=== PATIENT | female | born 1980 | race Caucasian/White ===

== ENCOUNTER → 2016-05-18 | Outpatient (CLI) | payer BC ==
--- NOTE | 2016-05-18 19:36 | MR ---
EXAMINATION TYPE: MR brain wo con DATE OF EXAM: 05/18/2016 6:35 PM COMPARISON: NONE HISTORY: Headache T1-weighted sagittal, T2, FLAIR, and diffusion axial, and T2 coronal coronal views of the brain are s ubmitted. There is no evidence of acute ischemia. The ventricles, basal cisterns, and sulci overlying the conv exities are consistent with the patient's age. There is no mass effect. Craniocervical junction maintained. No evidence of cerebellopontine angle mass. There is evidence of severe ethmoidal sinusitis and mild frontal and maxillary sinusitis. Mild spheno idal sinusitis noted. White matter: No abnormal signal identified within the visualized white matter IMPRESSION: 1. No acute intracranial process. 2. Moderate sinusitis.
== END | disposition home or self-care (01) ==
LOC: RADMRIMAIN 18:04
PROVIDERS: ATTEND Psychiatry & Neurology Neurology
DX: R51 Headache (principal)
CPT/HCPCS: 70551

== ENCOUNTER → 2017-01-05 | Outpatient (CLI) | payer BC | END | disposition home or self-care (01) | LOC: LABWHC1 10:20 | PROVIDERS: ATTEND Otolaryngology | DX: J30.89 Other allergic rhinitis (principal) | CPT/HCPCS: 36415; 86001 ==

== ENCOUNTER → 2017-05-02 | Outpatient (CLI) | payer BC ==
--- NOTE | 2017-05-02 13:04 | XR ---
EXAMINATION TYPE: XR abdomen 1V DATE OF EXAM: 05/02/2017 12:03 PM CLINICAL HISTORY: History of kidney stones with bilateral flank pain. TECHNIQUE: Single supine KUB image of the abdomen is obtained. COMPARISON: Most recent abdominal x-ray April 26, 2014. FINDINGS: There are suspected 10-15 calculi scattered throughout the left kidney increased in number from prior study measuring up to 7 mm on long axis. There are 6-10 smaller calculi scattered througho ut the right kidney on current study measuring up to 4 mm on long axis. There is overall nonobstructive bowel gas pattern. Tubular gas collection above the pubic symphysis l ikely reflects air within vaginal from tampon use. Visualized osseous structures are intact. IMPRESSION: Bilateral left greater than right nephrolithiasis.
== END | disposition home or self-care (01) ==
LOC: RADXRMAIN 11:40
PROVIDERS: ATTEND Urology
DX: N20.0 Calculus of kidney (principal)
CPT/HCPCS: 74018

== ENCOUNTER → 2018-10-09 | Outpatient (CLI) | payer BC ==
--- NOTE | 2018-10-09 12:15 | XR ---
EXAMINATION TYPE: XR KUB DATE OF EXAM: 10/09/2018 CLINICAL DATA: 38 year-old female history of chronic kidney disease, follow-up kidney stones, [facility] COMPARISON: 04/26/2014 FINDINGS: Nonobstructive bowel gas pattern. Scattered mild stool burden. Possible 4 mm density right mid abdomen. Additional 4 mm density upper to mid left abdomen. IMPRESSION: Suspect a 4 mm nonobstructive calculus, one in each kidney.
== END | disposition home or self-care (01) ==
LOC: RADXRMAIN 10:42
PROVIDERS: ATTEND Urology
DX: N20.0 Calculus of kidney (principal)
CPT/HCPCS: 74018

== ENCOUNTER → 2019-03-11 | Outpatient (CLI) | payer BC ==
[2019-03-11 09:26] LABS: HCT 39.8 % (34.0-46.0); HGB 13.5 gm/dL (11.4-16.0); MCH 32.7 pg (25.0-35.0); MCHC 33.9 g/dL (31.0-37.0); MCV 96.7 fL (80.0-100.0); Mean Platelet Volume 6.2; Platelet Count 258 k/uL (150-450); RBC 4.11 m/uL (3.80-5.40); RDW 11.2 % (11.5-15.5); Reticulocyte % 1.4 % (0.5-2.0); WBC 5.6 k/uL (3.8-10.6)
[2019-03-11 16:01] LABS: % Iron Saturation 20.42 (12.00-45.00)
[2019-03-11 16:08] LABS: T4, Free (Free Thyroxine) 1.1 ng/dL (0.80-1.80)
[2019-03-11 16:11] LABS: Ferritin 91.3 ng/mL (10.0-291.0)
[2019-03-11 16:16] LABS: Folate, Serum 17.2 ng/mL
[2019-03-13 06:44] LABS: Vit B1(Thiamine) 69 ug/L (38-122)
== END | disposition home or self-care (01) ==
LOC: LABWHC1 08:27
PROVIDERS: ATTEND Psychiatry & Neurology Pain Medicine
DX: D64.9 Anemia, unspecified (principal)
CPT/HCPCS: 36415; 82607; 82668; 82728; 82746; 83540; 83550; 84207; 84425; 84439; 84443; 84481; 84591; 85027; 85045

== ENCOUNTER → 2023-07-31 | Outpatient (CLI) | payer BC ==
[2023-07-31 16:15] LABS: Basophils # (A) 0.04 X 10*3/uL (0.00-0.10); Basophils % (A) 0.7 %; Eosinophils # (A) 0.07 X 10*3/uL (0.04-0.35); Eosinophils % (A) 1.3 %; HCT 39.3 % (37.2-46.3); HGB 13.2 g/dL (12.0-15.0); Lymphocytes # (A) 2.16 X 10*3/uL (0.90-5.00); MCH 32.5 pg (27.0-32.0); MCHC 33.6 g/dL (32.0-37.0); MCV 96.8 FL (80.0-97.0); Monocytes % (A) 7.2 %; NRBC Per 100 WBC 0 X 10*3/uL (0.00-0.01); Neutrophils # (A) 2.86 X 10*3/uL (1.80-7.70); Neutrophils % (A) 51.6 %; Platelet Count 237 X 10*3/uL (140-440); RBC 4.06 X 10*6/uL (4.10-5.20); RDW 11.4 % (11.5-14.5); WBC 5.54 X 10*3/uL (4.50-10.00)
[2023-07-31 16:36] LABS: ALT 13 U/L (8-44); AST 19 U/L (13-35); Albumin 4.6 g/dL (3.8-4.9); Albumin/Globulin Ratio 1.92 Ratio (1.60-3.17); Alkaline Phosphatase 61 U/L (41-126); BUN/Creat Ratio 16.88 Ratio (12.00-20.00); Blood Urea Nitrogen 13.5 mg/dL (9.0-27.0); Calcium 9.8 mg/dL (8.7-10.3); Carbon Dioxide 25.3 mmol/L (21.6-31.8); Chloride 101 mmol/L (96-109); Chol/HDL Ratio 4.01 Ratio; Globulin 2.4 g/dL (1.6-3.3); Glucose 89 mg/dL (70-110); LDL Cholesterol,Calculated 188.5 mg/dL (0.0-131.0); Potassium 4.5 mmol/L (3.5-5.5); Sodium 138 mmol/L (135-145); Total Bilirubin 0.3 mg/dL (0.3-1.2)
== END | disposition home or self-care (01) ==
LOC: LABWHC1 08:53
PROVIDERS: ATTEND Family Medicine
DX: Z00.00 Encounter for general adult medical examination without abnormal findings (principal)
CPT/HCPCS: 36415; 80053; 80061; 84443; 85025

== ENCOUNTER 2024-02-08 05:59 | Emergency (ER) | payer BC ==
--- NOTE | 2024-02-08 06:18 | ED ---
Abdominal Pain HPI - General Chief Complaint: Abdominal Pain Stated Complaint: Abd Pain Time Seen by Provider: 02/08/24 06:13 Source: patient, RN notes reviewed Mode of arrival: ambulatory Limitations: no limitations - History of Present Illness Initial Comments: This is a 44-year-old female history of asthma and migraines who presents emergency department with right flank pain radiation into her abdomen that started approximately 4 AM this morning. Patient states that she has also been feeling nauseous, chilled and has had episodes of diarrhea. She does have a history of kidney stones and states that this pain does feel similar in the past. She has a history of stent placement and subsequent from kidney stones. States that she has been going to the bathroom more frequently. Denies hematuria and dysuria. - Related Data Home Medications Medication Instructions Recorded Confirmed Albuterol Inhaler [Ventolin 1 - 2 puff INHALATION Q6HR PRN 03/23/14 03/25/14 Inhaler] Apri 28( Control) 1 tab PO 03/23/14 03/25/14 Mometasone Furoate [Asmanex] 1 - 2 puff INHALATION HS 03/23/14 03/25/14 Montelukast [Singulair] 10 mg PO DAILY 03/23/14 03/25/14 SUMAtriptan succinate [Imitrex] 50 mg PO DIRECTED PRN 03/23/14 03/25/14 Previous Rx's Medication Instructions Recorded Ketorolac [Toradol] 10 mg PO Q8HR #15 tab 02/08/24 Ondansetron Odt [Zofran Odt] 4 mg PO Q8HR PRN #10 tab 02/08/24 Tamsulosin [Flomax] 0.4 mg PO DAILY #7 cap 02/08/24 Allergies Allergy/AdvReac Type Severity Reaction Status Date / Time No Known Allergies Allergy Verified 02/08/24 06:06 Review of Systems ROS Statement: Those systems with pertinent positive or pertinent negative responses have been documented in the HPI. ROS Other: All systems not noted in ROS Statement are negative. Past Medical History Past Medical History: Asthma, GERD/Reflux History of Any Multi-Drug Resistant Organisms: None Reported Additional Past Surgical History / Comment(s): LITHOTRIPSY X3 ,NECK C YST,EXCISION OF LESION Past Anesthesia/Blood Transfusion Reactions: No Reported Reaction Past Alcohol Use History: Rare Past Drug Use History: None Reported General Exam Limitations: no limitations General appearance: alert, in no apparent distress Eye exam: Present: normal appearance, PERRL, EOMI. Absent: scleral icterus, conjunctival injection, periorbital swelling ENT exam: Present: normal exam, mucous membranes moist Neck exam: Present: normal inspection. Absent: tenderness, meningismus, lymphadenopathy Respiratory exam: Present: normal lung sounds bilaterally. Absent: respiratory distress, wheezes, rales, rhonchi, stridor Cardiovascular Exam: Present: regular rate, normal rhythm, normal heart sounds. Absent: systolic murmur, diastolic murmur, rubs, gallop, clicks GI/Abdominal exam: Present: soft, tenderness (right lower abdomen), normal bowel sounds. Absent: distended, guarding, rebound, rigid Extremities exam: Present: normal inspection, full ROM, normal capillary refill. Absent: tenderness, pedal edema, joint swelling, calf tenderness Back exam: Present: normal inspection, CVA tenderness (R) Neurological exam: Present: alert, oriented X3, CN II-XII intact Course Vital Signs 02/08/24 06:00 Pulse Rate 84 Respiratory 18 Rate Blood Pressure 134/75 O2 Sat by Pulse 100 Oximetry Medical Decision Making - Medical Decision Making Was pt. sent in by a medical professional or institution (, PA, WET PROCESS MILLER HEAD ASSISTANT, urgent care, hospital, or chcf...) When possible be specific @ -No Did you speak to anyone other than the patient for history (EMS, parent, family, police, friend...)? What history was obtained from this source @ -No Did you review nursing and triage notes (agree or disagree)? Why? @ -I reviewed and agree with nursing and triage notes Were old charts reviewed (outside hosp., previous admission, EMS record, old EKG, old radiological studies, urgent care reports/EKG's, chcf records)? Report findings @ -No old charts were reviewed Differential Diagnosis (chest pain, altered mental status, abdominal pain women, abdominal pain men, vaginal bleeding, weakness, fever, dyspnea, syncope, headache, dizziness, GI bleed, back pain, seizure, CVA, palpatations, mental health, musculoskeletal)? @ -Differential Abdominal Pain Women: Appendicitis, Cholecystitis, diverticulosis, ischemic bowel, pancreatitis, hepatitis, UTI, gastroenteritis, AAA, incarcerated hernia, bowel obstruction, constipation, inflammatory bowel, hepatitis, peptic ulcer disease, splenic infarction, perforated viscus, vulvitis, ovarian torsion, PID, kidney stone, placenta abruption, this is not meant to be an all-inclusive list EKG interpreted by me (3pts min.). @ -none X-rays interpreted by me (1pt min.). @ -None done CT interpreted by me (1pt min.). @ -CT of the abdomen and pelvis without contrast remarkable for a moderate to marked right hydronephrosis and hydroureter secondary to a 6 to 7 mm distal right ureteral calculus U/S interpreted by me (1pt. min.). @ -None done What testing was considered but not performed or refused? (CT, X-rays, U/S, labs)? Why? @ -None What meds were considered but not given or refused? Why? @ -None Did you discuss the management of the patient with other professionals (professionals i.e. , PA, WET PROCESS MILLER HEAD ASSISTANT, lab, RT, psych nurse, social problems specialist, flight line service attendant, teacher, strike warfare/missile systems officer, pillowcase folder)? Give summary @ -No Was smoking cessation discussed for >3mins.? @ -No Was critical care preformed (if so, how long)? @ -No Were there social determinants of health that impacted care today? How? (Homelessness, low income, unemployed, alcoholism, drug addiction, transportation, low edu. Level, literacy, decrease access to med. care, fpc, rehab)? @ -No Was there de-escalation of care discussed even if they declined (Discuss DNR or withdrawal of care, Hospice)? DNR status @ -No What co-morbidities impacted this encounter? (DM, HTN, Smoking, COPD, CAD, Cancer, CVA, ARF, Chemo, Hep., AIDS, mental health diagnosis, sleep apnea, morbid obesity)? @ -None Was patient admitted / discharged? Hospital course, mention meds given and route, prescriptions, significant lab abnormalities, going to OR and other pertinent info. @ -discharged. 44-year-old female with right flank pain. On my evaluation the patient is noted to be mildly pale however no signs of acute distress. Vitals are stable. Physical examination remarkable for right CVA tenderness in addition to wrapping tenderness into the right mid abdomen. Patient will be provided with analgesics and antiemetics pending laboratory results and CT imaging. She is in agreement with this plan. CBC reveals mild leukocytosis of 11.8, left shift neutrophils of 9, CMP unremarkable, urinalysis remarkable for blood and 10 white blood cells. On reevaluation, states that the medication has significantly helped her symptoms. CT remarkable for a 6 to 7 mm distal right ureteral calculus. Patient's urine will be sent for culture and she will be discharged home in stable condition with Flomax, Toradol, and Zofran. She is instructed to follow-up with her urologist outpatient within the next week for further evaluation. All questions answered at bedside and strict return parame ters discussed with the patient she is verbalized understanding. Case discussed with Dr. Whiteside Undiagnosed new problem with uncertain prognosis? @ -No Drug Therapy requiring intensive monitoring for toxicity (Heparin, Nitro, Insulin, Cardizem)? @ -No Were any procedures done? @ -No Diagnosis/symptom? @ -urethral stone, flank pain Acute, or Chronic, or Acute on Chronic? @ -acute Uncomplicated (without systemic symptoms) or Complicated (systemic symptoms)? @ -uncomplicated Side effects of treatment? @ -No Exacerbation, Progression, or Severe Exacerbation? @ -No Poses a threat to life or bodily function? How? (Chest pain, USA, OR, pneumonia, PE, COPD, DKA, ARF, appy, cholecystitis, CVA, Diverticulitis, Homicidal, Suicidal, threat to staff... and all critical care pts) @ -No - Lab Data Result diagrams: 02/08/24 06:22 02/08/24 06:22 Lab Results 02/08/24 02/08/24 02/08/24 Range/Units 06:22 06:22 06:30 WBC 11.8 H (3.8-10.6) k/uL RBC 4.03 (3.80-5.40) m/uL Hgb 13.0 (11.4-16.0) gm/dL Hct 40.7 (34.0-46.0) % MCV 100.9 H (80.0-100.0) fL MCH 32.3 (25.0-35.0) pg MCHC 32.0 (31.0-37.0) g/dL RDW 11.3 L (11.5-15.5) % Plt Count 236 (150-450) k/uL MPV 7.4 Neutrophils % 76 % Lymphocytes % 17 % Monocytes % 4 % Eosinophils % 0 % Basophils % 0 % Neutrophils # 9.0 H (1.3-7.7) k/uL Lymphocytes # 2.0 (1.0-4.8) k/uL Monocytes # 0.5 (0-1.0) k/uL Eosinophils # 0.1 (0-0.7) k/uL Basophils # 0.0 (0-0.2) k/uL Sodium 136 L (137-145) mmol/L Potassium 3.5 (3.5-5.1) mmol/L Chloride 105 (98-107) mmol/L Carbon Dioxide 24 (22-30) mmol/L Anion Gap 7 mmol/L BUN 16 (7-17) mg/dL Creatinine 0.71 (0.52-1.04) mg/dL Est GFR (CKD-EPI)AfAm >90 (>60 ml/min/1.73 sqM) Est GFR (CKD-EPI)NonAf >90 (>60 ml/min/1.73 sqM) Glucose 114 H (74-99) mg/dL Calcium 9.4 (8.4-10.2) mg/dL Total Bilirubin 0.9 (0.2-1.3) mg/dL AST 23 (14-36) U/L ALT 18 (4-34) U/L Alkaline Phosphatase 64 (38-126) U/L Total Protein 6.9 (6.3-8.2) g/dL Albumin 4.6 (3.5-5.0) g/dL Lipase 156 (23-300) U/L Urine Color Colorless Urine Appearance Turbid H (Clear) Urine pH 7.5 (5.0-8.0) Ur Specific [place] 1.019 (1.001-1.035) Urine Protein Trace H (Negative) Urine Glucose (UA) Negative (Negative) Urine Ketones 1+ H (Negative) Urine Blood Small H (Negative) Urine Nitrite Negative (Negative) Urine Bilirubin Negative (Negative) Urine Urobilinogen <2.0 (<2.0) mg/dL Ur Leukocyte Esterase Negative (Negative) Urine RBC 36 H (0-5) /hpf Urine WBC 10 H (0-5) /hpf Ur Squamous Epith Cells 3 (0-4) /hpf Amorphous Sediment Occasional H (None) /hpf Urine Mucus Rare H (None) /hpf Disposition Clinical Impression: Right ureteral calculus Disposition: HOME SELF-CARE Condition: Good Instructions (If sedation given, give patient instructions): Kidney Stones (ED) Additional Instructions: Please return to the Emergency Department if symptoms worsen or any other concerns. Contact your urologist to schedule follow-up appointment within a wee k for further evaluation. Prescriptions: Tamsulosin [Flomax] 0.4 mg PO DAILY #7 cap Ketorolac [Toradol] 10 mg PO Q8HR #15 tab Ondansetron Odt [Zofran Odt] 4 mg PO Q8HR PRN #10 tab PRN Reason: Nausea Is patient prescribed a controlled substance at d/c from ED?: No Referrals: Flower Ortiz MD [Primary Care Provider] - 1-2 days Time of Disposition: 08:07
[2024-02-08] MEDS: ONDANSETRON 4 MG/2 ML VIAL IVP STA (06:23)
[2024-02-08] MEDS: KETOROLAC 15 MG/ML 1 ML VIAL IVP STA (06:24)
[2024-02-08 06:38] LABS: Basophils % (A) 0 %; Eosinophils # (A) 0.1 k/uL (0-0.7); Eosinophils % (A) 0 %; HCT 40.7 % (34.0-46.0); Lymphocytes % (A) 17 %; MCH 32.3 pg (25.0-35.0); MCV 100.9 fL (80.0-100.0); Mean Platelet Volume 7.4; Monocytes # (A) 0.5 k/uL (0-1.0); Monocytes % (A) 4 %; Neutrophils % (A) 76 %; Platelet Count 236 k/uL (150-450); RBC 4.03 m/uL (3.80-5.40); RDW 11.3 % (11.5-15.5); WBC 11.8 k/uL (3.8-10.6)
[2024-02-08 06:49] LABS: ALT 18 U/L (4-34); AST 23 U/L (14-36); African American GFR (CKD) >90 (>60 ml/min/1.73 sqM); Albumin 4.6 g/dL (3.5-5.0); Alkaline Phosphatase 64 U/L (38-126); Anion Gap 7 mmol/L; Blood Urea Nitrogen 16 mg/dL (7-17); Calcium 9.4 mg/dL (8.4-10.2); Carbon Dioxide 24 mmol/L (22-30); Chloride 105 mmol/L (98-107); Glucose 114 mg/dL (74-99); Lipase 156 U/L (23-300); Non-African American GFR(CKD) >90 (>60 ml/min/1.73 sqM); Potassium 3.5 mmol/L (3.5-5.1); Sodium 136 mmol/L (137-145); Total Bilirubin 0.9 mg/dL (0.2-1.3); Total Protein 6.9 g/dL (6.3-8.2)
[2024-02-08 06:51] LABS: Amorphous Sediment,Urine Occasional /hpf; Appearance,Urine Turbid (Clear); Bilirubin,Urine Negative (Negative); Blood,Urine Small (Negative); Color,Urine Colorless; Glucose,Urine (UA) Negative (Negative); Ketones,Urine 1+ (Negative); Leukocyte Esterase,Urine Negative (Negative); Mucus,Urine Rare /hpf; Nitrite,Urine Negative (Negative); PH, Urine 7.5 (5.0-8.0); Protein,Urine Trace (Negative); RBC,Urine 36 /hpf (0-5); Specific Gravity,Urine 1.019 (1.001-1.035); Squamous Epithelial Cell,Urine 3 /hpf (0-4); Urobilinogen,Urine <2.0 mg/dL (<2.0); WBC,Urine 10 /hpf (0-5)
--- NOTE | 2024-02-08 07:50 | CT ---
EXAMINATION TYPE: CT abdomen pelvis wo con DATE OF EXAM: 02/08/2024 HISTORY: right flank pain CT DLP: 321.6 mGycm. Automated Exposure Control for Dose Reduction was Utilized. TECHNIQUE: CT scan of the abdomen and pelvis is performed without oral or IV contrast. COMPARISON: None FINDINGS: Within the limitations of a non-contrast study, the following observations are made. The lungs are clear. Gallbladder is normal and there is no gallstone, wall thickening, pericholecystic fluid or distention . There is no biliary ductal dilatation. There is no organomegaly of the liver, pancreas, spleen or adrenal glands. There is moderate to marked right hydronephrosis and hydroureter secondary to a 6 to 7 mm distal left ureteral calculus. There are approximately 6 nonobstructing left renal calcifications the largest of which is approximat lashell 6.5 mm. The caliber of the abdominal aorta is normal and there is no retroperitoneal adenopathy or hemorrhage . The bowel loops are normal in caliber is no evidence of obstruction. No inflammatory changes are iden tified in the mesentery and there is no free intraperitoneal air or fluid. There is no pelvic mass, free fluid, abscess or adenopathy. There is mild diverticulosis of the colon without CT evidence of diverticulitis. The osseous structures and soft tissues are unremarkable. IMPRESSION: 1. Moderate to marked right hydronephrosis and hydroureter secondary to a 6 to 7 mm distal right uret eral calculus. 2. Multiple nonobstructing left renal calcifications. 3. No other significant abnormality seen within the abdomen or pelvis [facility], Workstation: [email or web address] 02/08/2024 7:47 AM
[2024-02-08 08:45] VITALS: BP 131/76; PULSE 78; RESP 17
== END 2024-02-08 08:45 | disposition home or self-care (01) ==
LOC: EC 05:59
DX: N13.2 Hydronephrosis with renal and ureteral calculous obstruction (principal)
CPT/HCPCS: 36415; 74176; 80053; 81001; 83690; 85025; 87086; 96374; 96375; 99284

== ENCOUNTER → 2024-03-20 | Outpatient (CLI) | payer BC ==
--- NOTE | 2024-03-20 10:16 | CT ---
EXAMINATION TYPE: CT sinus wo con DATE OF EXAM: 03/20/2024 COMPARISON: None CLINICAL INDICATION: Female, 44 years old with history of J32.0 CHRONIC MAXILLARY SINUSITIS; PHH, SIN USITIS TECHNIQUE: CT scan of the sinuses is performed without contrast, axial images are obtained, coronal r eformatted images are also reviewed. CT DLP: [address] CTDI: mGy Automated exposure control for dose reduction was used. FINDINGS: The paranasal sinuses including the ethmoid, sphenoid, and maxillary sinuses bilaterally are well-aer ated without abnormal opacification. The frontal sinuses are hypoplastic. The ostiomeatal complex is patent bilaterally on the coronal images. Visualized portion of mastoid air cells show no abnormal opacification. The globes are intact bilate rally. IMPRESSION: The sinuses are clear and the ostiomeatal complex is patent bilaterally. The frontal sinuses are hyp oplastic. [facility], , 03/20/2024 10:14 AM
== END | disposition home or self-care (01) ==
LOC: RADCTMAIN 09:52
PROVIDERS: ATTEND Otolaryngology
DX: J32.0 Chronic maxillary sinusitis (principal)
CPT/HCPCS: 70486

== ENCOUNTER → 2024-05-14 | Outpatient (CLI) | payer BC ==
[2024-05-14 14:01] VITALS: BP 129/89; PULSE 77; RESP 16; TEMP 98.2
--- NOTE | 2024-05-14 15:03 | P.SLEEP ---
History of Present Illness DATE: 05/14/2024 CONSULTATION/NEW PATIENT EVALUATION HISTORY OF PRESENT ILLNESS/SLEEP-WAKE EVALUATION: 44-year-old lady had been e valuated in the sleep center for possible obstructive sleep apnea hypopnea syndrome. SLEEP SCHEDULE: Usually sleep schedule from 910:30 PM until 56 AM 7 days a week. FALLING ASLEEP: Sometimes patient has difficulties with falling asleep. DURING SLEEP: Patient snores and wakes up from sleep up to 4 times with grinding teeth, sweating and episodes of nocturia. Positive history of movements during sleep no history of hypnogogical hallucinations, sleep paralysis, or cataplexy. DURING THE DAY/WAKE STATE: Positive history of migraines after awakenings from sleep. [place] sleepiness scale is 3. Usually patient does not take naps. PAST MEDICAL HISTORY: Migraine, hyperlipidemia, asthma, depression, anxiety. PAST SURGICAL HISTORY: Partial hysterectomy, lithotripsy, removal neck cyst. MEDICATIONS: Please see below. SOCIAL HISTORY: Please see below. FAMILY HISTORY: Please see below. REVIEW OF SYSTEMS: Snoring, multiple awakenings from sleep, episodes of migraines after awakenings. No fevers. No double vision. No recent chest pain. No shortness of breath. No abdominal pain. No bleeding episodes. No blood in urine. No seizure episodes. PHYSICAL EXAMINATION: GENERAL: A pleasant patient without any distress. VITAL SIGNS: Please see below, weight 125.6, BMI 24.2. HEENT: PERRLA, EOMI. Evaluation of oropharynx showed tongue protrudes midline, low position of soft palate Mallampati 4, retrognathia 2-3 mm. NECK: Supple. No JVD. Thyroid is not palpable. 14 inches in circumference. LUNGS: Clear to percussion and to auscultation. Good air exchange. No wheezing or rhonchi. HEART: S1, S2 regular. No murmurs, gallops or rubs. ABDOMEN: Soft and nontender. Bowel sounds are present. No organomegaly appreciated. EXTREMITIES: No clubbing or cyanosis. CASHIER AND WAITER/WAITRESS: Awake, alert, and oriented x3. Cranial nerves 2 to 7 intact. There is no fasciculation or atrophy noted. No focal deficits observed. ASSESSMENT: 1. Snoring, multiple awakenings from sleep, extremely low position of soft palate Mallampati 4. Obstructive sleep apnea hypopnea syndrome. 2. Significant amount of movements during the sleep, possible periodic limb movements. 3. Migraines with episodes often starting in the morning after awakenings from sleep. 4. Hyperlipidemia. 5 asthma. 6 . Depression. 7. Anxiety. 8. Status post partial hysterectomy. 9 . History of sinuses problems. PLAN: 1. Polysomnography for evaluation of patient's breathing during sleep. 2. Following plan after reading sleep study. 3. Preferable position during sleep on the side. 4. No driving if patient feels any sleepiness. Patient is aware of civil and criminal liability for unsafe driving. 5. Sleep hygiene with regular sleep time for at least 7.5-8 hours. 6. Watching weight. Thank you very much for referring this patient for consultation. Sincerely, Leland Cyr MD, PhD, FAASM. Diplomat of [place] [employer], Sleep Medicine Board by [place] [employer] [place] [employer] Associate Vice President of [facility] [place] cc: Flower Ortiz MD Past Medical History Past Medical History: Asthma, GERD/Reflux, Hyperlipidemia Additional Past Medical History / Comment(s): Sinus headaches, snoring, headaches/migraines, Generalized anxiety disorder major depressive disorder History of Any Multi-Drug Resistant Organisms: None Reported Past Surgical History: Hysterectomy Additional Past Surgical History / Comment(s): LITHOTRIPSY X3 ,NECK CYST,EXCISION OF LESION, partial hysterectomy Past Anesthesia/Blood Transfusion Reactions: No Reported Reaction Past Psychological History: Anxiety, Depression Additional Psychological History / Comment(s): Gneralized anxiety disorder, major depressive Smoking Status: Never smoker Past Alcohol Use History: Rare Past Drug Use History: None Reported - Past Family History Father Family Medical History: Diabetes Mellitus, Hypertension Additional Family Medical History / Comment(s): Sinus headaches, snoring, headac hes, Depression (sister w/HTN, headaches, Generalized anxiety disorder) Mother Family Medical History: GERD/Reflux, Hyperlipidemia Additional Family Medical History / Comment(s): Headaches, generalized anxiety disorder Medications and Allergies Home Medications Medication Instructions Recorded Confirmed Type Albuterol Inhaler [Ventolin 1 - 2 puff INHALATION Q6HR PRN 03/23/14 03/25/14 History Inhaler] Apri 28( Control) 1 tab PO 03/23/14 03/25/14 History Mometasone Furoate [Asmanex] 1 - 2 puff INHALATION HS 03/23/14 03/25/14 History Montelukast [Singulair] 10 mg PO DAILY 03/23/14 05/14/24 History SUMAtriptan succinate [Imitrex] 50 mg PO DIRECTED PRN 03/23/14 03/25/14 History Ketorolac [Toradol] 10 mg PO Q8HR #15 tab 02/08/24 Rx Ondansetron Odt [Zofran Odt] 4 mg PO Q8HR PRN #10 tab 02/08/24 Rx Tamsulosin [Flomax] 0.4 mg PO DAILY #7 cap 02/08/24 Rx Atorvastatin [Lipitor] 20 mg PO DAILY 05/14/24 05/14/24 History Azelastine HCl [Astepro] DIRECTED 05/14/24 History Erenumab-Aooe [Aimovig 0 mg SQ DIRECTED 05/14/24 05/14/24 History Autoinjector] Ubrogepant [Ubrelvy] 100 mg PO DIRECTED 05/14/24 05/14/24 History Venlafaxine HCl ER [Effexor Xr] 150 mg PO DAILY 05/14/24 05/14/24 History busPIRone HCL 15 mg PO BID 05/14/24 05/14/24 History estradioL [Climara 0.025 MG] 0.025 mg PERCUTANEO DIRECTED 05/14/24 05/14/24 History Allergies Allergy/AdvReac Type Severity Reaction Status Date / Time No Known Allergies Allergy Verified 02/08/24 06:06 Physical Exam Vitals: Vital Signs Temp Pulse Resp BP Pulse Ox 05/14/24 14:01 98.2 F 77 16 129/89 99 Intake and Output 05/13/24 05/14/24 05/14/24 22:59 06:59 14:59 Other: Weight 56.869 kg Sleep Note - Sleep Data ESS Total: 3 - Sleep Note Sleep Note: Temperature: 98.2 F Pulse Rate: 77 Respiratory Rate: 16 Blood Pressure: 129/89 SpO2: 99 Height: 5 ft 0.2 in Weight: 56.869 kg BMI: Neck Circumference: 14
== END ==
LOC: 3 N SLEEP 13:28
PROVIDERS: ATTEND Internal Medicine
DX: G47.33 Obstructive sleep apnea (adult) (pediatric) (principal); R06.83 Snoring; J45.909 Unspecified asthma, uncomplicated; E78.5 Hyperlipidemia, unspecified; F32.A Depression, unspecified; F41.9 Anxiety disorder, unspecified; G43.909 Migraine, unspecified, not intractable, without status migrainosus; Z90.710 Acquired absence of both cervix and uterus; Z87.891 Personal history of nicotine dependence
CPT/HCPCS: 99211

== ENCOUNTER 2024-06-11 19:41 | Outpatient (CLI) | payer BC ==
--- NOTE | 2024-06-18 13:42 | P.PCN ---
Description of Procedure: POLYSOMNOGRAPHY REPORT PROCEDURE(S)/DATE(S): Polysomnography 06/11/2024 CLINICAL: Patient has been seen in the sleep center for evaluation of obstructive sleep apnea-hypopnea syndrome. Please see my consultation. Sleep study has been done for evaluation of patient breathing during the sleep. PROCEDURE: The standard montage for clinical polysomnography included the electroencephalogram, the electrooculogram, the mentalis surface electromyography and Lead II cardiography. The respiratory battery consisted of measurements of nasal/buccal air flow, pressure transducer measurements from nose, thoracic and/or abdominal effort and intercostal surface electromyography. Video monitoring has been done to check for any parasomnia events. Nocturnal oxyhemoglobin saturations were obtained by finger oximetry. Step-lynne titration with positive airway pressure was utilized to control the respiratory events, if necessary. RESULTS: During the diagnostic sleep study sleep efficiency was normal 86.2%. Latency to sleep onset was normal 23.5 min. Sleep architecture showed stage NI was normal 7.9%, Delta sleep was absent 0%, REM sleep was slightly decreased to 16.4%. Respiratory channel showed 2 obstructive apneas, 0 mixed apneas, 0 central apneas, 1 hypopneas with lowest oxygen level 89%. Total apnea hypopnea index was 0.5. Heart rate was in the range between 60 and 72, average 65. EMG showed 0 periodic limb movements per hour. IMPRESSIONS: 1. No significant respiratory abnormalities have been documented during the sleep study, normal oxygenation during sleep. 2. No significant periodic limb movements have been documented. Please see other impressions from consultation PLAN: 1. Sleep hygiene with regular time in bed for at least 7-1/2 hours.. 2. No driving if feeling sleepiness. Thank you very much for allowing me to participate in the management of your patient. Sincerely, Leland Cyr MD, PhD, FAASM. Diplomat of [place] [employer], Sleep Medicine Board by [place] [employer] Missionary Coordinator [facility] [place] cc: Flower Ortiz MD
== END 2024-06-12 05:30 | disposition home or self-care (01) ==
LOC: 3 N SLEEP 19:41
PROVIDERS: ATTEND Internal Medicine
DX: G47.33 Obstructive sleep apnea (adult) (pediatric) (principal); Z87.891 Personal history of nicotine dependence
CPT/HCPCS: 95810

== ENCOUNTER → 2024-10-02 | Outpatient (CLI) | payer BC ==
[2024-10-02 15:04] LABS: Basophils # (A) 0 X 10*3/uL (0.00-0.10); Basophils % (A) 0 %; Eosinophils # (A) 0 X 10*3/uL (0.04-0.35); Eosinophils % (A) 0 %; HCT 38.9 % (37.2-46.3); HGB 12.3 g/dL (12.0-15.0); Lymphocytes # (A) 1.45 X 10*3/uL (0.90-5.00); Lymphocytes % (A) 32.2 %; MCH 31.5 pg (27.0-32.0); MCHC 31.6 g/dL (32.0-37.0); MCV 99.7 FL (80.0-97.0); Mean Platelet Volume 10.8 FL (9.5-12.2); Monocytes # (A) 0.33 X 10*3/uL (0.20-1.00); Monocytes % (A) 7.3 %; NRBC Per 100 WBC 0 X 10*3/uL (0.00-0.01); Neutrophils # (A) 2.71 X 10*3/uL (1.80-7.70); Neutrophils % (A) 60.3 %; Platelet Count 220 X 10*3/uL (140-440); RDW 11.8 % (11.5-14.5)
[2024-10-02 15:36] LABS: ALT 20 U/L (8-44); AST 19 U/L (13-35); Albumin 4.4 g/dL (3.8-4.9); Alkaline Phosphatase 56 U/L (41-126); BUN/Creat Ratio 16.86 Ratio (12.00-20.00); Blood Urea Nitrogen 11.8 mg/dL (9.0-27.0); Calcium 9.2 mg/dL (8.7-10.3); Carbon Dioxide 25.4 mmol/L (21.6-31.8); Chloride 105 mmol/L (96-109); Chol/HDL Ratio 2.47 Ratio; Globulin 2.1 g/dL (1.6-3.3); Glucose 83 mg/dL (70-110); LDL Cholesterol,Calculated 70.9 mg/dL (0.0-131.0); Potassium 4.3 mmol/L (3.5-5.5); Sodium 142 mmol/L (135-145); Total Bilirubin 0.4 mg/dL (0.3-1.2); Total Protein 6.5 g/dL (6.2-8.2); VLDL Calculation 11.18 mg/dL (5.00-40.00)
== END | disposition home or self-care (01) ==
LOC: LABWHC1 07:26
PROVIDERS: ATTEND Family Medicine
DX: Z00.00 Encounter for general adult medical examination without abnormal findings (principal)
CPT/HCPCS: 36415; 80053; 80061; 84443; 85025